=== PATIENT | male | born 1995 | race Caucasian/White ===

== ENCOUNTER 2018-09-18 09:17 | Emergency (ER) | payer BC, OTHER ==
[2018-09-18 09:20] VITALS: TEMP 98.2
[2018-09-18] MEDS ORDERED: SODIUM CHLORIDE 0.9% 1,000 ML IV STA ×2 (09:48→10:35)
[2018-09-18 10:20] LABS: Basophils # (A) 0.1 k/uL (0-0.2); Basophils % (A) 1 %; Eosinophils # (A) 0.3 k/uL (0-0.7); Eosinophils % (A) 3 %; HCT 50.5 % (39.0-53.0); HGB 16.7 gm/dL (13.0-17.5); Lymphocytes % (A) 21 %; MCH 28.6 pg (25.0-35.0); MCHC 33.1 g/dL (31.0-37.0); MCV 86.6 fL (80.0-100.0); Mean Platelet Volume 6.3; Monocytes # (A) 0.6 k/uL (0-1.0); Monocytes % (A) 7 %; Neutrophils # (A) 6.5 k/uL (1.3-7.7); Neutrophils % (A) 67 %; Platelet Count 367 k/uL (150-450); RBC 5.83 m/uL (4.30-5.90); RDW 13.7 % (11.5-15.5); WBC 9.7 k/uL (3.8-10.6)
[2018-09-18 10:24] LABS: ALT 39 U/L (21-72); AST 27 U/L (17-59); Albumin 4.9 g/dL (3.5-5.0); Alkaline Phosphatase 85 U/L (38-126); Anion Gap 11 mmol/L; Blood Urea Nitrogen 15 mg/dL (9-20); Carbon Dioxide 27 mmol/L (22-30); Chloride 104 mmol/L (98-107); Glucose 95 mg/dL (74-99); Potassium 4.8 mmol/L (3.5-5.1); Sodium 142 mmol/L (137-145); Total Bilirubin 0.9 mg/dL (0.2-1.3); Total Protein 8.7 g/dL (6.3-8.2)
--- NOTE | 2018-09-18 10:34 | CT ---
EXAMINATION TYPE: CT brain wo con DATE OF EXAM: 09/18/2018 COMPARISON: NONE HISTORY: headache and blurry vision CT DLP: 1075 mGycm. Automated Exposure Control for Dose Reduction was Utilized. TECHNIQUE: CT scan of the head is performed without contrast. FINDINGS: There is no acute intracranial hemorrhage, mass effect, or midline shift identified. The ventricles and sulci are within normal limits in size. No suspicious extra-axial fluid collection. T he globes are intact and the visualized sinuses are clear. IMPRESSION: No acute intracranial hemorrhage, mass effect, or midline shift is seen.
[2018-09-18] MEDS ORDERED: diphenhydrAMINE 50 MG/ML 1 ML VIAL IVP STA (10:35)
[2018-09-18] MEDS ORDERED: METOCLOPRAMIDE 5 MG/ML 2 ML VIAL IVP STA (10:35)
[2018-09-18] MEDS ORDERED: MORPHINE SULFATE 4 MG/ML SYRINGE IVP STA (10:35)
--- NOTE | 2018-09-18 10:35 | ED ---
General Adult HPI - General Chief complaint: Eye Problems Stated complaint: blurry vision Time Seen by Provider: 09/18/18 09:22 Source: patient, RN notes reviewed Mode of arrival: ambulatory Limitations: no limitations - History of Present Illness Initial comments: 23-year-old male presents to the emergency department for a chief complaint of blurred vision 2 hours. Patient states he woke up with a left-sided headache. He states the pain was at a 6 out of 10. Patient states he has experienced headaches like this before. No history of migraines. However patient shortly developed blurry vision after this. He states he went to work but felt that he could not work so came to the emergency department. Patient states his vision is very blurry. He states this is worse in the periphery. Patient states this is bilateral. He denies double vision. He denies blackened vision. He does admit that he vomited once earlier this morning. Patient has no other complaints at this time including shortness of breath, chest pain, abdominal pain, or visual changes. - Related Data Home Medications Medication Instructions Recorded Confirmed No Known Home Medications 09/18/18 09/18/18 Allergies Allergy/AdvReac Type Severity Reaction Status Date / Time banana Allergy Rash/Hives Verified 09/18/18 09:53 Review of Systems ROS Statement: Those systems with pertinent positive or pertinent negative responses have been documented in the HPI. ROS Other: All systems not noted in ROS Statement are negative. Past Medical History Past Medical History: No Reported History History of Any Multi-Drug Resistant Organisms: None Reported Past Surgical History: No Surgical Hx Reported Past Psychological History: No Psychological Hx Reported Smoking Status: Never smoker Past Alcohol Use History: Occasional Past Drug Use History: None Reported General Exam Limitations: no limitations General appearance: alert, in no apparent distress Head exam: Present: atraumatic, normocephalic, normal inspection Eye exam: Present: normal appearance, PERRL, EOMI, other (Patient does have intact visual altman however states these are very blurry in the periphery.). Absent: scleral icterus, conjunctival injection, periorbital swelling Expanded Eyelids: Normal Inspection: Bilateral Pupils: Regular, Round: Bilateral Sclera/Conjunctival: Normal Inspection: Bilateral Anterior chamber: Normal Inspection: Bilateral Visual acuity (R) = 20/: 200 Visual acuity (L) = 20/: 200 With correction: No (none) ENT exam: Present: normal exam, mucous membranes moist Neck exam: Present: normal inspection, full ROM. Absent: tenderness, meningismus, lymphadenopathy Respiratory exam: Present: normal lung sounds bilaterally. Absent: respiratory distress, wheezes, rales, rhonchi, stridor Cardiovascular Exam: Present: regular rate, normal rhythm, normal heart sounds. Absent: systolic murmur, diastolic murmur, rubs, gallop, clicks Neurological exam: Present: alert, oriented X3, CN II-XII intact Psychiatric exam: Present: normal affect, normal mood Course Vital Signs 09/18/18 09:17 Temperature 98.2 F Pulse Rate 94 Respiratory 18 Rate Blood Pressure 136/95 O2 Sat by Pulse 97 Oximetry Medical Decision Making - Medical Decision Making 23-year-old male presents to the emergency department with a chief complaint of left-sided headache and visual disturbance. This just started today. Patient woke up with left-sided headache and peripheral blurry vision. He states he has had headaches like this before but has not had blurry vision associated. On exam patient did have decreased visual acuity but was able to see fingers in all visual altman however stated they were very blurry. Cannot tell if they were moving or not.Brain CT shows no acute intracranial hemorrhage, mass effect, or midline shift. Head CTA showed no hemodynamically significant stenosis, aneurysm, or dissection of the major intracranial vasculature. Patient was given morphine, Toradol, Reglan, Benadryl for symptom relief. He states that once his headache subsided his vision improved significantly. Patient states it is only minor blurriness in his periphery and this is improving. Patient feels significantly better. He is able to see all visual altman has no difficult piecing how many fingers I am holding up or whether the fingers are moving. He is stating he is ready to go home. His brother is giving him a ride. I did discuss returning if patient has any worsening symptoms including worsening visual acuity. He will follow up with primary care. He will return here if he has any other concerns as well. - Lab Data Result diagrams: 09/18/18 10:00 09/18/18 10:00 Lab Results 09/18/18 09/18/18 Range/Units 10:00 10:00 WBC 9.7 (3.8-10.6) k/uL RBC 5.83 (4.30-5.90) m/uL Hgb 16.7 (13.0-17.5) gm/dL Hct 50.5 (39.0-53.0) % MCV 86.6 (80.0-100.0) fL MCH 28.6 (25.0-35.0) pg MCHC 33.1 (31.0-37.0) g/dL RDW 13.7 (11.5-15.5) % Plt Count 367 (150-450) k/uL Neutrophils % 67 % Lymphocytes % 21 % Monocytes % 7 % Eosinophils % 3 % Basophils % 1 % Neutrophils # 6.5 (1.3-7.7) k/uL Lymphocytes # 2.0 (1.0-4.8) k/uL Monocytes # 0.6 (0-1.0) k/uL Eosinophils # 0.3 (0-0.7) k/uL Basophils # 0.1 (0-0.2) k/uL Sodium 142 (137-145) mmol/L Potassium 4.8 (3.5-5.1) mmol/L Chloride 104 (98-107) mmol/L Carbon Dioxide 27 (22-30) mmol/L Anion Gap 11 mmol/L BUN 15 (9-20) mg/dL Creatinine 0.74 (0.66-1.25) mg/dL Est GFR (CKD-EPI)AfAm >90 (>60 ml/min/1.73 sqM) Est GFR (CKD-EPI)NonAf >90 (>60 ml/min/1.73 sqM) Glucose 95 (74-99) mg/dL Calcium 10.0 (8.4-10.2) mg/dL Total Bilirubin 0.9 (0.2-1.3) mg/dL AST 27 (17-59) U/L ALT 39 (21-72) U/L Alkaline Phosphatase 85 (38-126) U/L Total Protein 8.7 H (6.3-8.2) g/dL Albumin 4.9 (3.5-5.0) g/dL Disposition Clinical Impression: Headache Disposition: HOME SELF-CARE Condition: Good Instructions (If sedation given, give patient instructions): Acute Headache (ED) Additional Instructions: Please follow up with primary care in 1-2 days. Please return to the emergency department if you have any worsening symptoms or worsening blurry vision Is patient prescribed a controlled substance at d/c from ED?: No Referrals: Michelle Parker MD [STAFF PHYSICIAN] - 1-2 days Time of Disposition: 11:51
--- NOTE | 2018-09-18 10:39 | CT ---
EXAMINATION TYPE: CT angio head DATE OF EXAM: 09/18/2018 HISTORY: headache and blurry vision COMPARISON: NONE CT DLP: 1151 mGycm. Automated Exposure Control for Dose Reduction was Utilized. TECHNIQUE: CTA scan of the neck is performed with IV Contrast, patient injected with 100 mL of Isovu e 370, axial images are obtained, coronal and sagittal reformatted images are reviewed. Three-D recon structed images are created on an independent workstation and reviewed. FINDINGS: Carotid/Vascular Structures: The vertebral arteries are codominant and patent. The intracranial carot id arteries, middle cerebral arteries, anterior cerebral arteries, and posterior cerebral arteries ar e also widely patent. There is a hair pin turn of the P1 segment on the right although no focal steno sis is seen. No intracranial aneurysm or sizable arteriovenous malformation is seen. No intracranial dissection. Other: Visualized portion of the brain as discussed on the CT brain dictation of the same date. IMPRESSION: No hemodynamically significant stenosis, aneurysmal outpouching or dissection of the shireen or intracranial vasculature.
[2018-09-18] MEDS ORDERED: KETOROLAC 30 MG/ML 1 ML VIAL IVP STA (11:19)
[2018-09-18 12:08] VITALS: BP 123/80; PULSE 63; RESP 16
== END 2018-09-18 12:14 | disposition home or self-care (01) ==
LOC: EC 09:17
DX: R51 Headache (principal); H53.8 Other visual disturbances; Z91.018 Allergy to other foods
CPT/HCPCS: 36415; 70450; 70496; 80053; 85025; 96361; 96374; 96375; 99284

== ENCOUNTER 2018-12-04 09:27 | Emergency (ER) | payer BC, OTHER ==
[2018-12-04] MEDS ORDERED: KETOROLAC 30 MG/ML 1 ML VIAL IVP STA (09:39)
[2018-12-04] MEDS ORDERED: ONDANSETRON 4 MG/2 ML VIAL IVP STA (09:39)
[2018-12-04] MEDS ORDERED: SODIUM CHLORIDE 0.9% 2,000 ML IV STA (09:39)
--- NOTE | 2018-12-04 10:21 | XR ---
EXAMINATION TYPE: XR KUB DATE OF EXAM: 12/04/2018 COMPARISON: NONE HISTORY: Right lower quadrant pain TECHNIQUE: One view abdominal series FINDINGS: The osseous structures are intact. The bowel gas pattern is nonspecific. Curvature of the spine. Spi na bifida occulta lumbosacral junction. IMPRESSION: 1. Nonspecific abdomen.
[2018-12-04 10:25] LABS: ALT 23 U/L (21-72); AST 20 U/L (17-59); Alkaline Phosphatase 85 U/L (38-126); Anion Gap 12 mmol/L; Blood Urea Nitrogen 10 mg/dL (9-20); Calcium 9.9 mg/dL (8.4-10.2); Carbon Dioxide 24 mmol/L (22-30); Chloride 107 mmol/L (98-107); Glucose 146 mg/dL (74-99); Lipase 217 U/L (23-300); Potassium 4.2 mmol/L (3.5-5.1); Sodium 143 mmol/L (137-145); Total Bilirubin 0.8 mg/dL (0.2-1.3); Total Protein 8.6 g/dL (6.3-8.2)
[2018-12-04 10:27] LABS: Basophils % (A) 0 %; Eosinophils # (A) 0.3 k/uL (0-0.7); Eosinophils % (A) 2 %; HCT 48.9 % (39.0-53.0); HGB 15.9 gm/dL (13.0-17.5); Lymphocytes # (A) 2.1 k/uL (1.0-4.8); Lymphocytes % (A) 19 %; MCH 27.4 pg (25.0-35.0); MCHC 32.5 g/dL (31.0-37.0); MCV 84.2 fL (80.0-100.0); Mean Platelet Volume 6.8; Monocytes # (A) 0.9 k/uL (0-1.0); Monocytes % (A) 8 %; Neutrophils # (A) 7.7 k/uL (1.3-7.7); Neutrophils % (A) 69 %; Platelet Count 415 k/uL (150-450); RBC 5.81 m/uL (4.30-5.90); RDW 13.7 % (11.5-15.5); WBC 11.1 k/uL (3.8-10.6)
--- NOTE | 2018-12-04 10:31 | ED ---
Abdominal Pain HPI - General Chief Complaint: Abdominal Pain Stated Complaint: abd pain Time Seen by Provider: 12/04/18 09:38 Source: patient, RN notes reviewed Mode of arrival: ambulatory Limitations: no limitations - History of Present Illness Initial Comments: 23-year-old male presents emergency Department chief complaint right flank pain. Patient states she has some onset of this pain with associated nausea and vomiting. The diarrhea constipation no fevers chills denies any prior abdominal surgeries. Denies any dysuria, hematuria, urinary frequency no history kidney stones. Patient states nothing makes the pain feel better or worse at this time. - Related Data Previous Rx's Medication Instructions Recorded Ketorolac [Toradol] 10 mg PO Q8HR #15 tab 12/04/18 Ondansetron Odt [Zofran Odt] 4 mg PO Q8HR PRN #10 tab 12/04/18 Tamsulosin [Flomax] 0.4 mg PO DAILY #7 cap 12/04/18 Allergies Allergy/AdvReac Type Severity Reaction Status Date / Time banana Allergy Rash/Hives Verified 09/18/18 09:53 Review of Systems ROS Statement: Those systems with pertinent positive or pertinent negative responses have been documented in the HPI. ROS Other: All systems not noted in ROS Statement are negative. Past Medical History Past Medical History: No Reported History History of Any Multi-Drug Resistant Organisms: None Reported Past Surgical History: No Surgical Hx Reported Past Psychological History: No Psychological Hx Reported Smoking Status: Never smoker Past Alcohol Use History: Occasional Past Drug Use History: None Reported General Exam Limitations: no limitations General appearance: alert, in no apparent distress Head exam: Present: atraumatic, normocephalic, normal inspection Eye exam: Present: normal appearance, PERRL, EOMI. Absent: scleral icterus, conjunctival injection, periorbital swelling ENT exam: Present: normal exam, mucous membranes moist Neck exam: Present: normal inspection, full ROM. Absent: tenderness, meningismus, lymphadenopathy Respiratory exam: Present: normal lung sounds bilaterally. Absent: respiratory distress, wheezes, rales, rhonchi, stridor Cardiovascular Exam: Present: regular rate, normal rhythm, normal heart sounds. Absent: systolic murmur, diastolic murmur, rubs, gallop, clicks GI/Abdominal exam: Present: soft, tenderness, normal bowel sounds. Absent: distended, guarding, rebound, rigid Back exam: Present: CVA tenderness (R). Absent: CVA tenderness (L) Neurological exam: Present: alert, oriented X3, CN II-XII intact Skin exam: Present: warm, dry, intact, normal color. Absent: rash Course Vital Signs 12/04/18 09:30 Temperature 98.1 F Pulse Rate 86 Respiratory 18 Rate Blood Pressure 129/90 O2 Sat by Pulse 98 Oximetry Medical Decision Making - Medical Decision Making 23-year-old male presented for right flank pain. Patient had CT which shows obstructive 3 mm ureteral stone. Patient's laboratory unremarkable except for urinalysis which shows evidence of hematuria. Patient be discharged follow-up with urology. Patient will be discharged with Toradol, Flomax, Zofran and fell with codeine starter pack. Return parameters were discussed. CT also revealed evidence of chronic colitis concerning for underlying IBD patient will follow-up with PCP for possible colonoscopy. - Lab Data Result diagrams: 12/04/18 09:55 12/04/18 09:55 Lab Results 12/04/18 12/04/18 12/04/18 Range/Units 09:55 09:55 09:55 WBC 11.1 H (3.8-10.6) k/uL RBC 5.81 (4.30-5.90) m/uL Hgb 15.9 (13.0-17.5) gm/dL Hct 48.9 (39.0-53.0) % MCV 84.2 (80.0-100.0) fL MCH 27.4 (25.0-35.0) pg MCHC 32.5 (31.0-37.0) g/dL RDW 13.7 (11.5-15.5) % Plt Count 415 (150-450) k/uL Neutrophils % 69 % Lymphocytes % 19 % Monocytes % 8 % Eosinophils % 2 % Basophils % 0 % Neutrophils # 7.7 (1.3-7.7) k/uL Lymphocytes # 2.1 (1.0-4.8) k/uL Monocytes # 0.9 (0-1.0) k/uL Eosinophils # 0.3 (0-0.7) k/uL Basophils # 0.0 (0-0.2) k/uL Sodium 143 (137-145) mmol/L Potassium 4.2 (3.5-5.1) mmol/L Chloride 107 (98-107) mmol/L Carbon Dioxide 24 (22-30) mmol/L Anion Gap 12 mmol/L BUN 10 (9-20) mg/dL Creatinine 0.91 (0.66-1.25) mg/dL Est GFR (CKD-EPI)AfAm >90 (>60 ml/min/1.73 sqM) Est GFR (CKD-EPI)NonAf >90 (>60 ml/min/1.73 sqM) Glucose 146 H (74-99) mg/dL Calcium 9.9 (8.4-10.2) mg/dL Total Bilirubin 0.8 (0.2-1.3) mg/dL AST 20 (17-59) U/L ALT 23 (21-72) U/L Alkaline Phosphatase 85 (38-126) U/L Total Protein 8.6 H (6.3-8.2) g/dL Albumin 5.0 (3.5-5.0) g/dL Lipase 217 (23-300) U/L Urine Color Dark Brown Urine Appearance Bloody (Clear) Urine RBC >182 H (0-5) /hpf Urine WBC 15 H (0-5) /hpf Urine Mucus Many H (None) /hpf Disposition Clinical Impression: Ureteral calculi Disposition: HOME SELF-CARE Condition: Stable Instructions (If sedation given, give patient instructions): Kidney Stones (ED) Additional Instructions: Please return to the Emergency Department if symptoms worsen or any other concerns. Prescriptions: Tamsulosin [Flomax] 0.4 mg PO DAILY #7 cap Ketorolac [Toradol] 10 mg PO Q8HR #15 tab Ondansetron Odt [Zofran Odt] 4 mg PO Q8HR PRN #10 tab PRN Reason: Nausea Is patient prescribed a controlled substance at d/c from ED?: No Referrals: None,Stated [Primary Care Provider] - 1-2 days Cristobal Syed MD [STAFF PHYSICIAN] - 1-2 days Time of Disposition: 11:14
[2018-12-04 10:50] LABS: Mucus,Urine Many /hpf; RBC,Urine >182 /hpf (0-5); WBC,Urine 15 /hpf (0-5)
[2018-12-04 10:51] LABS: Appearance,Urine Bloody (Clear)
[2018-12-04 10:52] LABS: Color,Urine Dark Brown
[2018-12-04] MEDS ORDERED: TAMSULOSIN 0.4 MG CAP.ER.24H PO STA (11:05)
--- NOTE | 2018-12-04 11:08 | CT ---
EXAMINATION TYPE: CT abdomen pelvis wo con DATE OF EXAM: 12/04/2018 COMPARISON: X-ray dated 12/04/2018 HISTORY: Right sided pain with urination changes CT DLP: 590.2 mGycm Automated exposure control for dose reduction was used. TECHNIQUE: Helical acquisition of images was performed from the lung bases through the pelvis. FINDINGS: LUNG BASES: No significant abnormality is appreciated. LIVER/GB: No significant abnormality is appreciated. PANCREAS: No significant abnormality is seen. SPLEEN: No significant abnormality is seen. ADRENALS: No significant abnormality is seen. KIDNEYS: There are 2 punctate 1 to 2 mm cartilaginous left kidney that are nonobstructing. There is a n additional 3 mm calculus in the right upper pole is nonobstructing and a 3 mm calculus in the proxi mal right ureter creating moderate right hydroureteronephrosis. No calculi are seen within the decomp ressed urinary bladder normally visualized portions of the urethra. FREE AIR: No free air is visualized ADENOPATHY: No greater than 1 cm short axis lymph node is seen in the abdomen or pelvis. OSSEOUS STRUCTURES: No significant abnormality is seen. BOWEL: Bowel is decompressed however there does appear to be submucosal deposition of fat in the tra nsverse colon and ascending colon that can be seen in chronic colitis. Appendix is air-filled and wit hin normal limits. OTHER: Very small umbilical hernia contains fat. IMPRESSION: 1. RIGHT-SIDED OBSTRUCTIVE UROPATHY SECONDARY TO A 3 MM CALCULUS IN THE RIGHT PROXIMAL URETER CREATIN G MODERATE RIGHT HYDROURETERONEPHROSIS. 2. FINDINGS SUGGESTING CHRONIC COLITIS OF THE ASCENDING AND TRANSVERSE COLON. CORRELATE FOR INFLAMMAT ORY BOWEL DISEASE. 3. ADDITIONAL NONOBSTRUCTING BILATERAL RENAL CALCULI.
[2018-12-04] MEDS ORDERED: ACET/COD 300 MG/30 MG STARTER PACK 6 TAB BTL PO STA (11:15)
[2018-12-04 11:32] VITALS: BP 127/71; PULSE 80; RESP 16; TEMP 97.8
== END 2018-12-04 11:31 | disposition home or self-care (01) ==
LOC: EC 09:27
DX: N20.1 Calculus of ureter (principal); Z91.018 Allergy to other foods
CPT/HCPCS: 36415; 80053; 83690; 85025; 81001; 74018; 74176; 99284; 96374; 96375; 96361; J2405; J1885

== ENCOUNTER 2019-02-20 03:46 | Emergency (ER) | payer OTHER ==
[2019-02-20 03:54] VITALS: TEMP 98
[2019-02-20] MEDS ORDERED: KETOROLAC 30 MG/ML 1 ML VIAL IVP STA (03:59)
[2019-02-20] MEDS ORDERED: SODIUM CHLORIDE 0.9% 1,000 ML IV STA (03:59)
[2019-02-20 04:31] LABS: Basophils # (A) 0.1 k/uL (0-0.2); Basophils % (A) 0 %; Eosinophils # (A) 0.3 k/uL (0-0.7); Eosinophils % (A) 1 %; HCT 47.6 % (39.0-53.0); Lymphocytes # (A) 1.6 k/uL (1.0-4.8); Lymphocytes % (A) 7 %; MCH 28.4 pg (25.0-35.0); MCHC 33.7 g/dL (31.0-37.0); MCV 84.2 fL (80.0-100.0); Mean Platelet Volume 7.3; Monocytes # (A) 0.9 k/uL (0-1.0); Monocytes % (A) 4 %; Neutrophils # (A) 20.1 k/uL (1.3-7.7); Neutrophils % (A) 87 %; Platelet Count 356 k/uL (150-450); RBC 5.65 m/uL (4.30-5.90); RDW 14.5 % (11.5-15.5); WBC 23.1 k/uL (3.8-10.6)
[2019-02-20 04:39] LABS: ALT 14 U/L (21-72); AST 51 U/L (17-59); African American GFR (CKD) >90 (>60 ml/min/1.73 sqM); Albumin 5.3 g/dL (3.5-5.0); Alkaline Phosphatase 98 U/L (38-126); Anion Gap 20 mmol/L; Blood Urea Nitrogen 16 mg/dL (9-20); Carbon Dioxide 15 mmol/L (22-30); Chloride 103 mmol/L (98-107); Glucose 112 mg/dL (74-99); Sodium 138 mmol/L (137-145); Total Bilirubin 1.3 mg/dL (0.2-1.3); Total Protein 9.6 g/dL (6.3-8.2)
--- NOTE | 2019-02-20 04:41 | XR ---
EXAM: XR Abdomen, 1 View CLINICAL HISTORY: ITS.REASON XR Reason: abdominal pain TECHNIQUE: Frontal supine view of the abdomen/pelvis. COMPARISON: 02/03/19. FINDINGS: Gastrointestinal tract: Unremarkable. No dilation. Bones/joints: No acute fracture. No dislocation. IMPRESSION: No acute findings.
--- NOTE | 2019-02-20 04:47 | ED ---
General Adult HPI - General Chief complaint: Urogenital Stated complaint: Kidney stones Time Seen by Provider: 02/20/19 03:55 Source: patient Mode of arrival: ambulatory Limitations: no limitations - History of Present Illness Initial comments: Domo's a 23-year-old male with known history of kidney stones who presents the emergency department today for evaluation of sudden onset of right-sided flank pain and dysuria. Patient reports this is identical previous stones. Patient reports he has urinary frequency urge and believes there is some blood in his urine. Patient denies any associated fevers, chills, nausea, vomiting or change in bowel or bladder habits. He was able eat a usual diet through the day yesterday he has no anterior abdominal pain. -: hour(s) - Related Data Previous Rx's Medication Instructions Recorded Ketorolac [Toradol] 10 mg PO Q8HR #15 tab 12/04/18 Ondansetron Odt [Zofran Odt] 4 mg PO Q8HR PRN #10 tab 12/04/18 Tamsulosin [Flomax] 0.4 mg PO DAILY #7 cap 12/04/18 Ondansetron [Zofran ODT] 4 mg PO Q8HR #12 tab 02/20/19 Tamsulosin [Flomax] 0.4 mg PO DAILY #7 cap 02/20/19 Allergies Allergy/AdvReac Type Severity Reaction Status Date / Time banana Allergy Rash/Hives Verified 09/18/18 09:53 Review of Systems ROS Statement: Those systems with pertinent positive or pertinent negative responses have been documented in the HPI. ROS Other: All systems not noted in ROS Statement are negative. Past Medical History Past Medical History: No Reported History History of Any Multi-Drug Resistant Organisms: None Reported Past Surgical History: No Surgical Hx Reported Past Psychological History: No Psychological Hx Reported Smoking Status: Never smoker Past Alcohol Use History: Occasional Past Drug Use History: None Reported General Exam - General Exam Comments Initial Comments: Physical Exam GENERAL: Patient is well-developed and well-nourished. Patient is nontoxic and well- hydrated and is in no distress. HENT: Normocephalic, Atraumatic. EYES: PERRL, EOMI PULMONARY: Unlabored respirations. No audible rales rhonchi or wheezing was noted. CARDIOVASCULAR: There is a regular rate and rhythm without any murmurs gallops or rubs. ABDOMEN: Soft and nontender with normal bowel sounds. SKIN: Skin is clear with no lesions or rashes and otherwise unremarkable. : Deferred NEUROLOGIC: Patient is alert and oriented x3. Moving all extremities spontaneously MUSCULOSKELETAL: Normal extremities with adequate strength and full range of motion. No lower extremity swelling or edema. No calf tenderness. PSYCHIATRIC: Normal psychiatric evaluation. Limitations: no limitations Course Vital Signs 02/20/19 02/20/19 03:51 05:33 Temperature 98.0 F Pulse Rate 77 85 Respiratory 17 18 Rate Blood Pressure 144/86 124/61 O2 Sat by Pulse 98 98 Oximetry Medical Decision Making - Medical Decision Making The patient was seen and evaluated history is obtained from patient has an history and physical exam are concerning for kidney stone Labs and KUB x-ray were ordered Labs with profound leukocytosis therefore computed tomography scan was ordered Urinalysis with hematuria no signs of infection Patient was reevaluated after Toradol and completely resolved symptoms he is now sleeping quietly Computed tomography scan does confirm a kidney stone but no other acute pathology Patient will be discharged home with supportive care and advised to follow-up with urology. All questions pertaining care were answered return parameters were discussed patient was discharged home pain-free and in stable condition. - Lab Data Result diagrams: 02/20/19 04:16 02/20/19 04:16 Lab Results 02/20/19 02/20/19 02/20/19 Range/Units 04:16 04:16 04:53 WBC 23.1 H (3.8-10.6) k/uL RBC 5.65 (4.30-5.90) m/uL Hgb 16.0 (13.0-17.5) gm/dL Hct 47.6 (39.0-53.0) % MCV 84.2 (80.0-100.0) fL MCH 28.4 (25.0-35.0) pg MCHC 33.7 (31.0-37.0) g/dL RDW 14.5 (11.5-15.5) % Plt Count 356 (150-450) k/uL Neutrophils % 87 % Lymphocytes % 7 % Monocytes % 4 % Eosinophils % 1 % Basophils % 0 % Neutrophils # 20.1 H (1.3-7.7) k/uL Lymphocytes # 1.6 (1.0-4.8) k/uL Monocytes # 0.9 (0-1.0) k/uL Eosinophils # 0.3 (0-0.7) k/uL Basophils # 0.1 (0-0.2) k/uL Sodium 138 (137-145) mmol/L Potassium 5.0 (3.5-5.1) mmol/L Chloride 103 (98-107) mmol/L Carbon Dioxide 15 L (22-30) mmol/L Anion Gap 20 mmol/L BUN 16 (9-20) mg/dL Creatinine 1.20 (0.66-1.25) mg/dL Est GFR (CKD-EPI)AfAm >90 (>60 ml/min/1.73 sqM) Est GFR (CKD-EPI)NonAf 85 (>60 ml/min/1.73 sqM) Glucose 112 H (74-99) mg/dL Calcium 10.0 (8.4-10.2) mg/dL Total Bilirubin 1.3 (0.2-1.3) mg/dL AST 51 (17-59) U/L ALT 14 L (21-72) U/L Alkaline Phosphatase 98 (38-126) U/L Total Protein 9.6 H (6.3-8.2) g/dL Albumin 5.3 H (3.5-5.0) g/dL Lipase 64 (23-300) U/L Urine Color Yellow Urine Appearance Clear (Clear) Urine pH 5.5 (5.0-8.0) Ur Specific [place] 1.048 H (1.001-1.035) Urine Protein 2+ H (Negative) Urine Glucose (UA) Negative (Negative) Urine Ketones 3+ H (Negative) Urine Blood Moderate H (Negative) Urine Nitrite Negative (Negative) Urine Bilirubin Negative (Negative) Urine Urobilinogen <2.0 (<2.0) mg/dL Ur Leukocyte Esterase Negative (Negative) Urine RBC 100 H (0-5) /hpf Urine WBC 5 (0-5) /hpf Ur Squamous Epith Cells 1 (0-4) /hpf Calcium Oxalate Crystal Rare H (None) /hpf Urine Bacteria Rare H (None) /hpf Hyaline Casts 21 H (0-2) /lpf Urine Mucus Many H (None) /hpf Disposition Clinical Impression: Kidney stone Disposition: HOME SELF-CARE Condition: Stable Instructions (If sedation given, give patient instructions): Kidney Stones (ED) Prescriptions: Tamsulosin [Flomax] 0.4 mg PO DAILY #7 cap Ondansetron [Zofran ODT] 4 mg PO Q8HR #12 tab Is patient prescribed a controlled substance at d/c from ED?: No Referrals: None,Stated [Primary Care Provider] - 1-2 days Cristobal Syed MD [STAFF PHYSICIAN] - 1-2 days
[2019-02-20 05:10] LABS: Appearance,Urine Clear (Clear); Bacteria,Urine Rare /hpf; Bilirubin,Urine Negative (Negative); Blood,Urine Moderate (Negative); Calcium Oxalate Crystals,Urine Rare /hpf; Color,Urine Yellow; Glucose,Urine (UA) Negative (Negative); Hyaline Casts,Urine 21 /lpf (0-2); Ketones,Urine 3+ (Negative); Leukocyte Esterase,Urine Negative (Negative); Mucus,Urine Many /hpf; Nitrite,Urine Negative (Negative); PH, Urine 5.5 (5.0-8.0); Protein,Urine 2+ (Negative); RBC,Urine 100 /hpf (0-5); Squamous Epithelial Cell,Urine 1 /hpf (0-4); Urobilinogen,Urine <2.0 mg/dL (<2.0); WBC,Urine 5 /hpf (0-5)
[2019-02-20 05:11] LABS: Specific Gravity,Urine 1.048 (1.001-1.035)
--- NOTE | 2019-02-20 05:29 | CT ---
EXAM: CT Abdomen and Pelvis With Intravenous Contrast CLINICAL HISTORY: ITS.REASON CT Reason: Pain TECHNIQUE: Axial computed tomography images of the abdomen and pelvis with intravenous contrast. CTDI is 11 mGy and DLP is 367 mGy-cm. This CT exam was performed using one or more of the following dose reduction techniques: automated exposure control, adjustment of the mA and/or kV according to patient size, and/or use of iterative reconstruction technique. COMPARISON: No relevant prior studies available. FINDINGS: Lung bases: No mass. No consolidation. ABDOMEN: Liver: Mild steatosis. Gallbladder and bile ducts: Unremarkable. Pancreas: Unremarkable. Spleen: Unremarkable. Adrenals: Unremarkable. Kidneys and ureters: Left kidney is unremarkable. Right hydroureteronephrosis secondary to a 4-5 mm stone in the right UVJ. 4 mm nonobstructive stone in the right kidney. Stomach and bowel: No bowel obstruction. No bowel wall thickening. PELVIS: Appendix: No appendicitis. Bladder: Unremarkable. Reproductive: Unremarkable. ABDOMEN and PELVIS: Intraperitoneal space: Unremarkable. Bones/joints: No acute fractures. Soft tissues: Unremarkable. Vasculature: No abdominal aortic aneurysm. Lymph nodes: No enlarged lymph nodes. IMPRESSION: Right hydroureteronephrosis secondary to a 4-5 mm stone in the right UVJ. 4 mm nonobstructive stone in the right kidney.
[2019-02-20 05:34] VITALS: BP 124/61; PULSE 85; RESP 18
[2019-02-20] MEDS ORDERED: ACET/COD 300 MG/30 MG STARTER PACK 6 TAB BTL PO STA (06:04)
== END 2019-02-20 06:37 | disposition home or self-care (01) ==
LOC: EC 03:46
DX: N13.2 Hydronephrosis with renal and ureteral calculous obstruction (principal); D72.829 Elevated white blood cell count, unspecified; Z91.018 Allergy to other foods
CPT/HCPCS: 36415; 80053; 83690; 85025; 81001; 74018; 74177; 99284; 96374; 96361; J1885; Q9967